=== PATIENT | female | born 1950 | race Caucasian/White ===

== ENCOUNTER → 2020-09-28 | Outpatient (CLI) | payer MEDICARE ==
[~2020-09-28] MED LIST: MAALOX PLUS 3030 ML PO; MIRTAZAPINE7.5 MG PO; NORCO 5-325 TA1 EACH PO; PROTONIX40 MG PO; TUMS/TITRALAC500 MG PO
== END ==
LOC: KOH-I 10:36
DX: M80.022D Age-related osteoporosis with current pathological fracture, left humerus, subsequent encounter for fracture with routine healing (principal)
CPT/HCPCS: 73030